=== PATIENT | female | born 1995 | race Caucasian/White ===

== ENCOUNTER 2022-10-12 07:47 | Inpatient (IN) ==
[2022-10-12] MEDS ORDERED: OXYTOCIN 30 UNITS/500 ML BAG IV PRN (09:00)
[2022-10-12] MEDS ORDERED: DINOPROSTONE 10 MG INSERT PV ONE (09:00)
[2022-10-12] MEDS ORDERED: LIDOCAINE 1% LOCAL 20 ML VIAL INFIL PRN (09:00)
[2022-10-12 09:42] LABS: Hematocrit (blood only) 37.5 % (37.0-47.0); Hemoglobin 12.9 g/dl (12.0-16.0); Mean Corpuscular Hgb Conc 34.4 g/dL (32.0-36.0); Mean Corpuscular Volume 98.9 fL (80.0-100.0); Mean Platelet Volume 11.3 fL (9.4-12.4); Platelet Count 198 K/uL (130-400); RDW Coefficient of Variation 11.7 % (11.5-14.5); RDW Standard Deviation 42.8 fL (36.4-46.3); Red Blood Count 3.79 M/uL (4.20-5.40); White Blood Count 8.39 K/ul (4.8-10.8)
[2022-10-12 09:55] LABS: Albumin Globulin Ratio 1.3 (0.9-2); Albumin Level 3.2 gm/dl (3.4-5.0); BUN Creatinine Ratio 17.2 (10-20); Bilirubin,Total 0.4 mg/dl (0.2-1.0); Calcium 8.8 mg/dl (8.6-10.3); Creatinine Clr Calc Pharmacy 141.4 ml/min; Est GFR (African American) 140.7 ml/min; Est GFR (Non-African American) 121.4 ml/min; Globulin 2.5 gm/dl (2.5-4.0); Potassium 3.7 mmol/L (3.5-5.1); Total Protein 5.7 gm/dl (6.0-8.3)
--- NOTE | 2022-10-12 09:58 | History & Physical Report ---
Date of Service October 12, 2022 Assessment & Plan (1) 40 weeks gestation of : Plan: 27-year-old G1, P0 at 40 weeks of gestation scheduled for induction of labor at term, Vital signs stable afebrile, GBS negative, heart rate reassuring, Cervix unfavorable, Plan to admit, monitor, labs, Cervidil for cervical ripening, discussed what to expect during induction of labor, All questions were answered. Admission and Anticipated Discharge Date Admission Date: October 12, 2022 History of Present Illness Primary Care Provider: Ana Moreira MD Patient is a 27-year-old G1, P0 at 40 weeks of gestation who was scheduled for induction of labor at term due to slight elevated blood pressures in the office, 130s to 80s. Patient feels well no complaints. She denies contractions, leakage of fluid, vaginal bleeding, headaches, change in her vision, nausea vomiting, right upper quadrant or epigastric pain. She reports good movements. Her has been uncomplicated. GBS negative. Allergies Allergy/AdvReac Type Severity Reaction Status Date / Time codeine Allergy Nausea Verified 07/06/22 16:13 hydrocodone Allergy Nausea Verified 07/06/22 16:13 oxycodone Allergy Nausea Verified 07/06/22 16:13 Patient History Medical History (Updated 10/12/22 @ 09:57 by Alayna Oliveros MD) Chicken pox Instability of ankle Migraine Peroneal tendonitis of right lower extremity Tendonitis of ankle Surgical History Status post wisdom tooth extraction Family History Grandmother (Maternal) Breast cancer Other Diabetes Hypertension Denies family history of Ovarian cancer Colorectal cancer Social History Smoking Status: Never smoker Hx Alcohol Use: No Hx Substance Use: No Preferred Language: [employer]ian [employer] Required: No Beliefs That Will Affect Care: None marital status: Current Living Situation: Spouse Other Information That Helps Us Care for You: No Feels Safe at Home: No Is there a partner from a previous relationship who is making you feel unsafe now?: No Any Concerns about Your Family Situation: No Wou ld You Like to Speak to Someone About Your Situation: No Safety Concerns: Feels Safe At This Time Assistive Devices: None [employer]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 No history of genital herpes, chlamydia, gonorrhea. Review of Systems as per Subjective / HPI Physical Exam Constitutional: WD/WN, vitals as above well developed, well nourished and comfortable Gastrointestinal (Abdomen): normal bowel sounds, soft, nontender, no hepatosplenomegaly (Gravid, Ervin 7 pounds) Genitourinary: normal external appearance OB Exam Abdomen: + vertex Manual OB Exam: + cervical dilation 1 cm, + cervical effacement 20% and + station high OB Exam Monitor Tracing: + external uterine monitor used and + category I Results & Data Vital Signs (Past 12 Hours) Vital Signs Temp Pulse Resp BP 10/12/22 08:36 19 10/12/22 08:36 37.0 C 10/12/22 08:23 85 139/88
[2022-10-12] MEDS ORDERED: BUTORPHANOL TARTRATE 1 MG/ML VIAL IV PRN (14:30)
[2022-10-12] MEDS ORDERED: ONDANSETRON INJ 2 MG/ML 2 ML VIAL IV PRN (14:31)
[2022-10-12] MEDS: diphenhydrAMINE Capsule 25 MG CAP PO PRN (14:50)
--- NOTE | 2022-10-12 18:51 | Obstetrical Progress Note ---
Date of Service October 12, 2022 Assessment & Plan Admission and Anticipated Discharge Date Admission Date: October 12, 2022 Subjective Patient is reevaluated She feels irregular contractions, pain is 3/ 10, does not need pain meds No LOF/VB +FM She is hungry and likes to eat FHR categ I Continue to monitor Dinner, remove cervidil at 10 tonight Results & Data Vital Signs (Past 12 Hours) Vital Signs Temp Pulse Resp BP 10/12/22 17:45 72 128/86 10/12/22 17:15 70 134/88 10/12/22 16:45 61 125/75 10/12/22 16:15 61 128/75 10/12/22 15:36 78 144/90 H 10/12/22 15:25 76 141/92 H 10/12/22 15:15 65 135/93 10/12/22 15:05 69 145/98 H 10/12/22 14:53 75 154/95 H 10/12/22 14:54 36.7 C 76 149/97 H 10/12/22 12:48 37.0 C 69 18 127/75 10/12/22 08:36 19 10/12/22 08:36 37.0 C 19 10/12/22 08:23 85 139/88
[2022-10-12] MEDS: HYDROCORTISONE 2.5% CR 30 GM TUBE EXT PRN (19:36)
--- NOTE | 2022-10-12 23:19 | Obstetrical Progress Note ---
Date of Service October 12, 2022 Assessment & Plan Admission and Anticipated Discharge Date Admission Date: October 12, 2022 Subjective Patient is getting more painful since Cervidil was removed. Rates the pain 9-10/ 10, desires epidural for pain No LOF/VB +FM VE; 2/ 70%/ -2, tight bulging bag FHR categ I ctxs q 1-3 min Continue to monitor closely Epidural for pain Results & Data Vital Signs (Past 12 Hours) Vital Signs Temp Pulse Resp BP 10/12/22 19:10 36.7 C 18 10/12/22 19:33 69 133/89 10/12/22 17:45 72 128/86 10/12/22 17:15 70 134/88 10/12/22 16:45 61 125/75 10/12/22 16:15 61 128/75 10/12/22 15:36 78 144/90 H 10/12/22 15:25 76 141/92 H 10/12/22 15:15 65 135/93 10/12/22 15:05 69 145/98 H 10/12/22 14:53 75 154/95 H 10/12/22 14:54 36.7 C 76 149/97 H 10/12/22 12:48 37.0 C 69 18 127/75
[2022-10-12] MEDS: LACTATED RINGER'S 1,000 ML IV PRN (23:21)
[2022-10-12] MEDS ORDERED: fentaNYL 2MCG/ML ROPIVACAINE 1.25MG/ML 100 ML BAG EPI ONE (23:27)
[2022-10-12] MEDS ORDERED: fentaNYL citrate PF 100 MCG/2 ML VIAL ONE (23:27)
[2022-10-12] MEDS ORDERED: LIDOCAINE 2%/EPINEPHRINE 1:200,000 20 ML PF ONE (23:27)
[2022-10-12] MEDS ORDERED: SODIUM CHLORIDE 0.9% PF INJ 10 ML VIAL ONE (23:27)
[2022-10-12] MEDS ORDERED: BUPIVACAINE 0.25% PF 30 ML VIAL ONE (23:27)
[2022-10-12] MEDS ORDERED: ePHEDrine sulfate 50 MG/ML AMP ONE (23:27)
--- NOTE | 2022-10-12 23:28 | Anesthesiology Consultation ---
Date of Service October 12, 2022 Assessment & Plan (1) Encounter for pre-operative examination: Chart Review Chart Review: Acceptable Risk for Labor Epidural History Height/Weight Height: 5 ft 6 in Weight: 82.1 kg Allergies Allergy/AdvReac Type Severity Reaction Status Date / Time codeine Allergy Nausea Verified 07/06/22 16:13 hydrocodone Allergy Nausea Verified 07/06/22 16:13 oxycodone Allergy Nausea Verified 07/06/22 16:13 Medications Active Medications Generic Name Dose Route Start Last Admin Trade Name Freq PRN Reason Stop Dose Admin Diphenhydramine HCl 25 mg 10/12/22 14:33 10/12/22 14:50 Diphenhydramine Capsule 25 Mg Cap PO 11/11/22 14:32 25 mg Q8 PRN Administration Itching Hydrocortisone 1 appln 10/12/22 19:00 10/12/22 19:36 Hydrocortisone 2.5% Cr 30 Gm Tube EXT 11/11/22 18:59 1 appln Q8 PRN Administration Itching Lactated Ringer's 1,000 mls @ 150 mls/hr 10/12/22 09:00 10/12/22 23:21 Lr IV 10/14/22 08:59 999 mls/hr .[id number] PRN Administration L&D Protocol Protocol Past Medical History Medical History (Updated 10/12/22 @ 23:28 by Justyn Doran MD) Chicken pox Instability of ankle Migraine Peroneal tendonitis of right lower extremity Tendonitis of ankle Past Family History Family History Grandmother (Maternal) Breast cancer Other Diabetes Hypertension Denies family history of Ovarian cancer Colorectal cancer Past Surgical History Surgical History Status post wisdom tooth extraction Social History Smoking Status: Never smoker Do You Dip or Chew Tobacco: No Hx Alcohol Use: No Hx Substance Use: No Physical Exam Vital Signs Last Vital Signs Temp 36.7 C 10/12/22 19:10 Pulse 75 10/12/22 23:19 Resp 18 10/12/22 19:10 BP 141/82 H 10/12/22 23:19 Testing Laboratory Results 10/12/22 09:11 10/12/22 09:11
[2022-10-13] MEDS ORDERED: ONDANSETRON INJ 2 MG/ML 2 ML VIAL IV PRN (00:07)
[2022-10-13] MEDS ORDERED: NALOXONE HCL 1 MG in SODIUM CHLORIDE 0.9% 1000ML 1,000 ML IV PRN (00:07)
[2022-10-13] MEDS ORDERED: fentaNYL 2MCG/ML ROPIVACAINE 1.25MG/ML 100 ML BAG EPI PRN (00:07)
[2022-10-13] MEDS ORDERED: ePHEDrine sulfate 50 MG/ML AMP IV PRN (00:07)
[2022-10-13] MEDS ORDERED: NALOXONE HCL 0.4 MG/1 ML VIAL/CARP IV PRN (00:07)
[2022-10-13] MEDS ORDERED: OXYTOCIN 30 UNITS/500 ML BAG IV PRN ×2 (01:08→10:54)
[2022-10-13] MEDS: LACTATED RINGER'S 1,000 ML IV PRN ×2 (03:16→07:04)
--- NOTE | 2022-10-13 03:50 | Obstetrical Progress Note ---
Date of Service October 13, 2022 Assessment & Plan Admission and Anticipated Discharge Date Admission Date: October 12, 2022 Subjective Patient was sleeping and got up with gush of fluid leaking. SROM'ed at 03:11 FHR had been categ I, started to have early and variable decels to 80-90-100's with some contractions. Pitocin is stopped, IVF started VE; 3/ 70%/-2, engaged FHR now 120-130's with accels Continue to monitor closely. Results & Data Vital Signs (Past 12 Hours) Vital Signs Temp Pulse Resp BP Pulse Ox 10/12/22 19:10 36.7 C 18 10/13/22 03:41 69 98 10/13/22 03:36 80 96 10/13/22 03:33 71 94 10/13/22 03:31 69 95 10/13/22 03:32 68 108/55 L 10/13/22 03:26 77 95 10/13/22 03:21 76 97 10/13/22 03:16 77 149/90 H 96 10/13/22 03:11 74 96 10/13/22 03:06 74 95 10/13/22 03:07 81 94 10/13/22 03:01 94 10/13/22 03:01 69 10/13/22 03:01 70 94 10/13/22 03:00 68 129/67 10/13/22 02:56 76 96 10/13/22 02:55 72 94 10/13/22 02:51 80 94 10/13/22 02:49 74 94 10/13/22 02:46 71 92 10/13/22 02:45 69 132/66 10/13/22 02:44 74 94 10/13/22 02:41 79 95 10/13/22 02:38 74 94 10/13/22 02:36 77 96 10/13/22 02:31 70 96 10/13/22 02:32 71 94 10/13/22 02:30 71 136/72 10/13/22 02:26 96 10/13/22 02:26 72 10/13/22 02:26 68 94 10/13/22 02:21 71 96 10/13/22 02:18 72 94 10/13/22 02:16 70 94 10/13/22 02:15 70 137/75 10/13/22 02:12 71 94 10/13/22 02:11 74 94 10/13/22 02:06 69 93 10/13/22 02:02 16 10/13/22 02:02 16 10/13/22 02:01 95 10/13/22 02:01 77 10/13/22 02:01 68 126/70 10/13/22 02:00 68 94 10/13/22 01:56 76 96 10/13/22 01:55 72 94 10/13/22 01:51 71 94 10/13/22 01:49 70 94 10/13/22 01:46 71 130/69 94 10/13/22 01:41 71 95 10/13/22 01:42 69 94 10/13/22 01:36 72 95 10/13/22 01:31 71 95 10/13/22 01:30 70 133/73 94 10/13/22 01:25 71 95 10/13/22 01:23 84 16 93 10/13/22 01:20 78 96 10/13/22 01:15 74 128/63 97 10/13/22 01:10 73 95 10/13/22 01:05 74 96 10/13/22 01:00 69 120/57 L 96 10/13/22 00:55 69 95 10/13/22 00:50 68 95 10/13/22 00:49 69 94 10/13/22 00:45 95 10/13/22 00:45 69 10/13/22 00:45 67 120/59 L 10/13/22 00:40 69 96 10/13/22 00:35 71 98 10/13/22 00:30 78 120/61 96 10/13/22 00:25 78 96 10/13/22 00:20 76 97 10/13/22 00:15 75 97 10/13/22 00:14 73 122/59 L 10/13/22 00:10 76 16 96 10/13/22 00:08 68 110/56 L 10/13/22 00:05 70 18 96 10/13/22 00:06 68 111/57 L 10/13/22 00:04 71 113/58 L 10/13/22 00:02 64 112/55 L 10/13/22 00:00 65 18 110/55 L 96 10/12/22 23:58 67 119/60 10/12/22 23:55 66 94 10/12/22 23:53 64 106/51 L 10/12/22 23:50 89 97 10/12/22 23:45 79 97 10/12/22 23:40 94 10/12/22 23:40 79 10/12/22 23:40 75 93 10/12/22 23:35 80 98 10/12/22 23:30 77 97 10/12/22 23:19 36.7 C 75 20 141/82 H 10/12/22 19:33 69 133/89 10/12/22 17:45 72 128/86 10/12/22 17:15 70 134/88 10/12/22 16:45 61 125/75 10/12/22 16:15 61 128/75
--- NOTE | 2022-10-13 04:46 | Obstetrical Progress Note ---
Date of Service October 13, 2022 Assessment & Plan Admission and Anticipated Discharge Date Admission Date: October 12, 2022 Subjective FHR started to have decels again, some early some variables, lately with de creased variability VE; 4-5 cm/ 90%/ -1, IUPC is placed with amnioinfusion, 250 ml is started FHR had increased variability and acceleration after exam Continue to monitor closely Results & Data Vital Signs (Past 12 Hours) Vital Signs Temp Pulse Resp BP Pulse Ox 10/12/22 19:10 36.7 C 18 10/13/22 04:41 71 99 10/13/22 04:36 71 99 10/13/22 04:31 69 100 10/13/22 04:30 73 124/70 10/13/22 04:26 72 99 10/13/22 04:21 70 99 10/13/22 04:16 65 99 10/13/22 04:15 61 127/76 10/13/22 03:50 18 10/13/22 03:50 37.0 C 18 10/13/22 04:11 66 100 10/13/22 04:06 71 99 10/13/22 04:01 74 99 10/13/22 04:00 68 127/72 10/13/22 03:56 72 98 10/13/22 03:51 77 99 10/13/22 03:46 73 97 10/13/22 03:41 69 98 10/13/22 03:36 80 96 10/13/22 03:33 71 94 10/13/22 03:31 69 95 10/13/22 03:32 68 108/55 L 10/13/22 03:26 77 95 10/13/22 03:21 76 97 10/13/22 03:16 77 149/90 H 96 10/13/22 03:11 74 96 10/13/22 03:06 74 95 10/13/22 03:07 81 94 10/13/22 03:01 94 10/13/22 03:01 69 10/13/22 03:01 70 94 10/13/22 03:00 68 129/67 10/13/22 02:56 76 96 10/13/22 02:55 72 94 10/13/22 02:51 80 94 10/13/22 02:49 74 94 10/13/22 02:46 71 92 10/13/22 02:45 69 132/66 10/13/22 02:44 74 94 10/13/22 02:41 79 95 10/13/22 02:38 74 94 10/13/22 02:36 77 96 10/13/22 02:31 70 96 10/13/22 02:32 71 94 10/13/22 02:30 71 136/72 10/13/22 02:26 96 10/13/22 02:26 72 10/13/22 02:26 68 94 10/13/22 02:21 71 96 10/13/22 02:18 72 94 10/13/22 02:16 70 94 10/13/22 02:15 70 137/75 10/13/22 02:12 71 94 10/13/22 02:11 74 94 10/13/22 02:06 69 93 10/13/22 02:02 16 10/13/22 02:02 16 10/13/22 02:01 95 10/13/22 02:01 77 10/13/22 02:01 68 126/70 10/13/22 02:00 68 94 10/13/22 01:56 76 96 10/13/22 01:55 72 94 10/13/22 01:51 71 94 10/13/22 01:49 70 94 10/13/22 01:46 71 130/69 94 10/13/22 01:41 71 95 10/13/22 01:42 69 94 10/13/22 01:36 72 95 10/13/22 01:31 71 95 10/13/22 01:30 70 133/73 94 10/13/22 01:25 71 95 10/13/22 01:23 84 16 93 10/13/22 01:20 78 96 10/13/22 01:15 74 128/63 97 10/13/22 01:10 73 95 10/13/22 01:05 74 96 10/13/22 01:00 69 120/57 L 96 10/13/22 00:55 69 95 10/13/22 00:50 68 95 10/13/22 00:49 69 94 10/13/22 00:45 95 10/13/22 00:45 69 10/13/22 00:45 67 120/59 L 10/13/22 00:40 69 96 10/13/22 00:35 71 98 10/13/22 00:30 78 120/61 96 10/13/22 00:25 78 96 10/13/22 00:20 76 97 10/13/22 00:15 75 97 10/13/22 00:14 73 122/59 L 10/13/22 00:10 76 16 96 10/13/22 00:08 68 110/56 L 10/13/22 00:05 70 18 96 10/13/22 00:06 68 111/57 L 10/13/22 00:04 71 113/58 L 10/13/22 00:02 64 112/55 L 10/13/22 00:00 65 18 110/55 L 96 10/12/22 23:58 67 119/60 10/12/22 23:55 66 94 10/12/22 23:53 64 106/51 L 10/12/22 23:50 89 97 10/12/22 23:45 79 97 10/12/22 23:40 94 10/12/22 23:40 79 10/12/22 23:40 75 93 10/12/22 23:35 80 98 10/12/22 23:30 77 97 10/12/22 23:19 36.7 C 75 20 141/82 H 10/12/22 19:33 69 133/89 10/12/22 17:45 72 128/86 10/12/22 17:15 70 134/88 10/12/22 16:45 61 125/75
[2022-10-13] MEDS ORDERED: LIDOCAINE 2%/EPINEPHRINE 1:200,000 20 ML PF ONE (06:00)
[2022-10-13] MEDS ORDERED: ROPIVACAINE 0.5% 5 MG/ML 30 ML VIAL ONE (06:00)
--- NOTE | 2022-10-13 06:11 | Anesthesia Procedure Note ---
Date of Service October 13, 2022 Anesthesia Epidural Re-Dose Vital Signs Temp Pulse Resp BP Pulse Ox 36.7 C 70 18 136/71 97 10/13/22 04:55 10/13/22 06:01 10/13/22 04:55 10/13/22 06:01 10/13/22 06:01 Notes Pain Intensity: 6 Dilatation (cm): 7.0 Effacement (%): 100 Called by nursing to evaluate epidural as the patient is having increased pain though really doesn't even breathe differently during the peak of contractions. The epidural was re-dosed with the following medications (all medications via epidural route) after negative aspiration of the epidural catheter for CSF/HEME 1.2% lidocaine and 0.2% ropivacaine 7ml. After Epidural Re-Dose Mental Status: alert / awake / arousable Pain: improving with treatment Airway Patency, RR, SpO2: stable & adequate BP & HR: stable & adequate
--- NOTE | 2022-10-13 08:43 | Labor Progress Brief Note ---
Date of Service October 13, 2022 Assessment & Plan Admission and Anticipated Discharge Date Admission Date: October 12, 2022 Physical Exam Genitourinary: Manual OB Exam: + cervical dilation 10 cm, + cervical effacement 100%, + station 0 and + 1 and + amniotic fluid clear OB Exam Monitor Tracing: + external FHT monitor used, + intra-uterine pressure catheter used, + category I and + normal FHT variability Results & Data Vital Signs (Past 12 Hours) Vital Signs Temp Pulse Resp BP Pulse Ox 10/13/22 08:08 20 10/13/22 07:00 37.2 C 18 10/13/22 08:41 82 99 10/13/22 08:36 79 98 10/13/22 08:31 74 157/93 H 98 10/13/22 08:26 71 98 10/13/22 08:21 76 99 10/13/22 08:16 70 98 10/13/22 08:17 69 142/85 H 10/13/22 08:11 77 99 10/13/22 08:00 20 10/13/22 08:00 20 10/13/22 08:06 73 98 10/13/22 08:01 74 136/70 100 10/13/22 07:56 78 99 10/13/22 07:51 83 99 10/13/22 07:46 82 100 10/13/22 07:47 82 149/76 H 10/13/22 07:41 79 100 10/13/22 07:36 75 99 10/13/22 07:31 79 139/65 100 10/13/22 07:26 73 98 10/13/22 07:21 75 98 10/13/22 07:16 98 10/13/22 07:16 74 10/13/22 07:16 73 129/62 10/13/22 07:11 76 97 10/13/22 07:06 91 H 99 10/13/22 07:01 99 10/13/22 07:01 81 10/13/22 07:01 80 126/62 10/13/22 06:56 80 99 10/13/22 06:51 80 99 10/13/22 06:46 80 100 10/13/22 06:47 79 133/68 10/13/22 06:41 76 100 10/13/22 06:36 78 100 10/13/22 06:31 99 10/13/22 06:31 78 10/13/22 06:31 78 122/63 10/13/22 06:26 79 99 10/13/22 06:21 83 99 10/13/22 06:16 74 98 10/13/22 06:15 75 117/63 10/13/22 06:11 97 10/13/22 06:11 79 10/13/22 06:11 80 120/60 10/13/22 06:09 78 127/64 10/13/22 06:08 115 H 18 90 10/13/22 06:07 72 129/68 10/13/22 06:06 72 97 10/13/22 06:05 71 18 128/65 10/13/22 06:01 70 136/71 97 10/13/22 05:56 69 98 10/13/22 05:51 71 98 10/13/22 05:46 67 98 10/13/22 05:45 68 127/64 10/13/22 05:41 70 99 10/13/22 05:36 70 98 10/13/22 05:31 99 10/13/22 05:31 81 10/13/22 05:31 68 158/75 H 10/13/22 05:26 71 97 10/13/22 05:21 80 99 10/13/22 05:16 68 99 10/13/22 05:15 68 136/77 10/13/22 05:11 77 99 10/13/22 05:06 77 99 10/13/22 05:01 67 100 10/13/22 05:00 64 133/75 10/13/22 04:55 18 10/13/22 04:55 36.7 C 18 10/13/22 04:56 84 100 10/13/22 04:51 71 99 10/13/22 04:46 63 99 10/13/22 04:45 66 140/75 10/13/22 04:41 71 99 10/13/22 04:36 71 99 10/13/22 04:31 69 100 10/13/22 04:30 73 124/70 10/13/22 04:26 72 99 10/13/22 04:21 70 99 10/13/22 04:16 65 99 10/13/22 04:15 61 127/76 10/13/22 03:50 18 10/13/22 03:50 37.0 C 18 10/13/22 04:11 66 100 10/13/22 04:06 71 99 10/13/22 04:01 74 99 10/13/22 04:00 68 127/72 10/13/22 03:56 72 98 10/13/22 03:51 77 99 10/13/22 03:46 73 97 10/13/22 03:41 69 98 10/13/22 03:36 80 96 10/13/22 03:33 71 94 10/13/22 03:31 69 95 10/13/22 03:32 68 108/55 L 10/13/22 03:26 77 95 10/13/22 03:21 76 97 10/13/22 03:16 77 149/90 H 96 10/13/22 03:11 74 96 10/13/22 03:06 74 95 10/13/22 03:07 81 94 10/13/22 03:01 94 10/13/22 03:01 69 10/13/22 03:01 70 94 10/13/22 03:00 68 129/67 10/13/22 02:56 76 96 10/13/22 02:55 72 94 10/13/22 02:51 80 94 10/13/22 02:49 74 94 10/13/22 02:46 71 92 10/13/22 02:45 69 132/66 10/13/22 02:44 74 94 10/13/22 02:41 79 95 10/13/22 02:38 74 94 10/13/22 02:36 77 96 10/13/22 02:31 70 96 10/13/22 02:32 71 94 10/13/22 02:30 71 136/72 10/13/22 02:26 96 10/13/22 02:26 72 10/13/22 02:26 68 94 10/13/22 02:21 71 96 10/13/22 02:18 72 94 10/13/22 02:16 70 94 10/13/22 02:15 70 137/75 10/13/22 02:12 71 94 10/13/22 02:11 74 94 10/13/22 02:06 69 93 10/13/22 02:02 16 10/13/22 02:02 16 10/13/22 02:01 95 0428/23 02:01 77 10/13/22 02:01 68 126/70 10/13/22 02:00 68 94 10/13/22 01:56 76 96 10/13/22 01:55 72 94 10/13/22 01:51 71 94 10/13/22 01:49 70 94 10/13/22 01:46 71 130/69 94 10/13/22 01:41 71 95 10/13/22 01:42 69 94 10/13/22 01:36 72 95 10/13/22 01:31 71 95 10/13/22 01:30 70 133/73 94 10/13/22 01:25 71 95 10/13/22 01:23 84 16 93 10/13/22 01:20 78 96 10/13/22 01:15 74 128/63 97 10/13/22 01:10 73 95 10/13/22 01:05 74 96 10/13/22 01:00 69 120/57 L 96 10/13/22 00:55 69 95 10/13/22 00:50 68 95 10/13/22 00:49 69 94 10/13/22 00:45 95 10/13/22 00:45 69 10/13/22 00:45 67 120/59 L 10/13/22 00:40 69 96 10/13/22 00:35 71 98 10/13/22 00:30 78 120/61 96 10/13/22 00:25 78 96 10/13/22 00:20 76 97 10/13/22 00:15 75 97 10/13/22 00:14 73 122/59 L 10/13/22 00:10 76 16 96 10/13/22 00:08 68 110/56 L 10/13/22 00:05 70 18 96 10/13/22 00:06 68 111/57 L 10/13/22 00:04 71 113/58 L 10/13/22 00:02 64 112/55 L 10/13/22 00:00 65 18 110/55 L 96 10/12/22 23:58 67 119/60 10/12/22 23:55 66 94 10/12/22 23:53 64 106/51 L 10/12/22 23:50 89 97 10/12/22 23:45 79 97 10/12/22 23:40 94 10/12/22 23:40 79 10/12/22 23:40 75 93 10/12/22 23:35 80 98 10/12/22 23:30 77 97 10/12/22 23:19 36.7 C 75 20 141/82 H
--- NOTE | 2022-10-13 10:01 | Delivery Summary ---
Vaginal Delivery Summary Date of Service October 13, 2022 Vaginal Delivery Summary Delivery Note live male BRYSON over intact perineum with delayed cord clamping and Apgars 7/9 with short cord noted. Placenta delivered spontaneously and intact with accessory lobe of placenta noted with 3VC. Small 1st degree vaginal tear not repaired with no bleeding noted. EBL 100 ml. Final sponge and instrument count are correct. Mom and baby stable.
[2022-10-13] MEDS ORDERED: ACETAMINOPHEN 325 MG TAB PO PRN (10:54)
[2022-10-13] MEDS ORDERED: bisacodyL 10 MG SUPP PR PRN (10:54)
[2022-10-13] MEDS ORDERED: HYDROCORTISONE ACETATE 25 MG SUPP PR PRN (10:54)
[2022-10-13] MEDS ORDERED: DIPHTHERIA/TETANUS/PERTUSSIS 0.5mL SYR/VIAL (Age 7+yrs) IM ONE (10:54)
--- NOTE | 2022-10-13 12:14 | Anesthesia Procedure Note ---
Date of Service October 13, 2022 Anesthesia Post Epidural Note Vital Signs Vital Signs: Temp Pulse Resp BP Pulse Ox 37.1 C 88 20 137/76 97 10/13/22 09:01 10/13/22 12:10 10/13/22 09:30 10/13/22 12:10 10/13/22 09:51 Pain Intensity Abdomen: Pain Intensity: 0 Notes Mental Status: alert / awake / arousable and participated in evaluation Nausea / Vomiting: adequately controlled Pain: adequately controlled Airway Patency, RR, SpO2: stable & adequate BP & HR: stable & adequate Hydration State: stable & adequate Neuraxial Anesthesia: was administered and sensory block is resolving Anesthetic Complications: no major complications apparent and Pt Satisfied with anesthetic care Epidural: Removed without complications and With tip intact
[2022-10-13] MEDS: HYDROCORTISONE 2.5% CR 30 GM TUBE EXT PRN (12:41)
[2022-10-13] MEDS: IBUPROFEN 600 MG TAB PO PRN (14:10)
[2022-10-13] MEDS: BENZOCAINE 20% AER SPR 82.5 GM CAN EXT PRN (14:10)
[2022-10-13] MEDS: DOCUSATE SODIUM 100 MG CAP PO SCH (20:48)
[2022-10-14] MEDS: DOCUSATE SODIUM 100 MG CAP PO SCH ×2 (07:23→21:01)
[2022-10-14] MEDS: PRENATAL VITAMIN 1 TAB PO SCH (07:23)
[2022-10-14 07:56] LABS: Hematocrit (blood only) 35.2 % (37.0-47.0); Hemoglobin 12.3 g/dl (12.0-16.0); Mean Corpuscular Hemoglobin 34.3 pg (25.0-34.0); Mean Corpuscular Hgb Conc 34.9 g/dL (32.0-36.0); Mean Corpuscular Volume 98.1 fL (80.0-100.0); Mean Platelet Volume 11.4 fL (9.4-12.4); Platelet Count 175 K/uL (130-400); RDW Coefficient of Variation 11.9 % (11.5-14.5); RDW Standard Deviation 43.5 fL (36.4-46.3); Red Blood Count 3.59 M/uL (4.20-5.40); White Blood Count 13.37 K/ul (4.8-10.8)
--- NOTE | 2022-10-14 09:31 | Obstetrical Progress Note ---
Date of Service October 14, 2022 Assessment & Plan (1) Normal course: PPD #1 Pt doing well anticipate disch tomorrow Subjective Ambulation: ambulating normally Voiding: no voiding problems Passing Gas:: Yes Diet Tolerance:: regular diet Lochia:: Small Feeding Type:: breast feeding Review of Systems All systems reviewed & are unremarkable except as noted in HPI & below Physical Exam Constitutional WD/WN, vitals as above well developed and well nourished Eyes PERRL, conjunctivae normal, anicteric sclerae Neck trachea midline, no thyromegaly Respiratory normal respiratory effort, lungs clear to auscultation Auscultation: no crackles, no rales and no wheezes Cardiovascular RRR, no murmur, no edema Gastrointestinal (Abdomen) normal bowel sounds, soft, nontender, no hepatosplenomegaly Uterus is below umbilicus Musculoskeletal no cyanosis or clubbing, extremities motor strength 5/5 Skin no rashes, warm and dry Neurologic patellar DTR's 2+ bilat, sensation intact Psychiatric A+Ox3, euthymic affect Genitourinary normal external appearance Results & Data Vital Signs (Past 12 Hours) Vital Signs Temp Pulse Resp BP Pulse Ox O2 Del Method 10/14/22 07:40 36.7 C 76 16 127/83 96 Room Air 10/14/22 02:40 36.6 C 69 16 143/86 H Room Air 10/13/22 23:40 36.6 C 66 18 143/90 H 10/13/22 21:35 130/81 10/13/22 21:30 149/92 H
[2022-10-14] MEDS: IBUPROFEN 600 MG TAB PO PRN ×2 (10:43→18:14)
[2022-10-14] MEDS ORDERED: bisacodyL 5 MG TABEC PO SCH (20:00)
[2022-10-14] MEDS: BENZOCAINE 20% AER SPR 82.5 GM CAN EXT PRN (21:01)
[2022-10-15] MEDS: diphenhydrAMINE Capsule 25 MG CAP PO PRN (00:52)
[2022-10-15 06:47] LABS: Hematocrit (blood only) 36.3 % (37.0-47.0); Hemoglobin 12.7 g/dl (12.0-16.0)
[2022-10-15] MEDS: PRENATAL VITAMIN 1 TAB PO SCH (08:54)
[2022-10-15] MEDS: DOCUSATE SODIUM 100 MG CAP PO SCH (08:54)
--- NOTE | 2022-10-15 09:55 | Obstetrical Progress Note ---
Date of Service October 15, 2022 Assessment & Plan (1) Normal course: PPD #2 pt doing well Mildly elevated BP. No PIH symptoms Rash on entire body, sparing the umbilicus. this started before delivery and is improving- suspect PUPPS Plan CBC/ CMP Results & Data Vital Signs (Past 12 Hours) Vital Signs Temp Pulse Resp BP Pulse Ox O2 Del Method 10/15/22 09:34 36.8 C 78 17 149/94 H 99 10/15/22 08:10 36.8 C 78 17 149/94 H 99 Room Air 10/15/22 00:55 36.7 C 75 18 132/81
[2022-10-15 10:33] LABS: Basophils # (auto) 0.03 K/uL (0-0.2); Basophils % (auto) 0.3 %; Eosinophils % (auto) 1.7 %; Hematocrit (blood only) 41.1 % (37.0-47.0); Immature Granulocytes # (auto) 0.05 K/uL (0.01-0.20); Immature Granulocytes % (auto) 0.4 %; Lymphocytes # (auto) 1.44 K/uL (1.2-3.4); Lymphocytes % (auto) 12.1 %; Mean Corpuscular Hemoglobin 34.1 pg (25.0-34.0); Mean Corpuscular Hgb Conc 34.1 g/dL (32.0-36.0); Mean Corpuscular Volume 100.2 fL (80.0-100.0); Mean Platelet Volume 10.5 fL (9.4-12.4); Monocytes % (auto) 3.4 %; Neutrophils # (auto) 9.78 K/uL (1.40-6.50); Neutrophils % (auto) 82.1 %; Platelet Count 254 K/uL (130-400); RDW Coefficient of Variation 11.9 % (11.5-14.5); RDW Standard Deviation 43.8 fL (36.4-46.3)
[2022-10-15 10:53] LABS: Albumin Globulin Ratio 1.2 (0.9-2); Albumin Level 3.5 gm/dl (3.4-5.0); BUN Creatinine Ratio 16.2 (10-20); Bilirubin,Total 0.5 mg/dl (0.2-1.0); Calcium 9.1 mg/dl (8.6-10.3); Creatinine Clr Calc Pharmacy 122.3 ml/min; Est GFR (African American) 127.8 ml/min; Est GFR (Non-African American) 110.3 ml/min; Globulin 2.9 gm/dl (2.5-4.0); Potassium 3.8 mmol/L (3.5-5.1); Total Protein 6.4 gm/dl (6.0-8.3)
== END 2022-10-15 11:55 | disposition home or self-care (01) | DRG 807 ==
LOC: 4S1 07:47 → 4E2 10-13 13:05

== ENCOUNTER 2024-08-03 23:40 | Inpatient (IN) ==
--- OUTSIDE RECORDS SUMMARY | 2024-08-03 23:47 | External Medical Summary | Summary of Care ---
Author Name Unknown Organization [facility] Address [address] [place] [address] Phone [phone] Care Team Providers Care Environment Friendly Landscape Designer Name Role Phone Ana Moreira MD Primary Care Provider [phone] Reason for Visit * Reason Comments Return Visit Encounter Details Date Type Department Care Team (Late st Contact Info) Description 07/25/2024 1:30 PM EST Office Visit Gynecology/Obstetric s [facility] [address] [facility] [place] [address] Toya Starr CRNP [address] [facility] [place] [place] [address] Encounter for supervision of other normal , unspecified trimester*; Uterine size date discrepancy Allergies Active Allergy Reactions Criticality Noted Date Comments Oxycodone 04/27/2020 Other reaction(s): fainting, sweating, dizziness. Also occurred with Percocet documented as of this encounter (statuses as of 07/25/2024) Medications SUMAtriptan Succinate 25 MG Oral Tablet (Imitrex)Indicat ions:Menstrual migraine without status migrainosus, not intractable Take 1 Tablet (25 mg) every 2 hours as needed by mouth for Migraine. 20 Tablet 2 2 Active Additional Information Patient not taking.Reported on 07/25/2024 19 29-1 MG Oral Tablet Chewable Take by mouth . Acti ve Erythromycin 5 MG/GM Ophthalmic Ointment Instill into both eyes 2 times a day. 4 Active Cetirizine HCl 10 MG Oral Tablet (ZyrTEC Allergy)Indicati ons:Periorbital dermatitis,Itchi ng Take 1 Tablet by mouth daily as needed for Other (itchy eyelids). Till better 4 Active predniSONE 5 MG Oral Tablet (Deltasone)Indic ations:Dermatiti s One tablet daily 5 Tablet 4 Active Additional Information Patient not taking.Reported on 07/25/2024 documented as of this encounter (statuses as of 07/25/2024) Active Problems Problem Noted Date Diagnosed Date Encounter for supervision of other normal , unspecified trimester 01/09/2024 History of abnormal cervical Pap smear 3 Overview (12/05/2022): ASCUS +HPV 2021, negative colposcopy. Pap 2022 NILM/neg HPV, recommend repeat in 2023. Lactose intolerance Estimated Date of Delivery Comme nts Yes 08/05/2024 Based on last me nstrual period of 10/30/2023 (Approximate) documented as of this encounter (statuses as of 07/25/2024) Resolved Problems Problem Noted Date Diagnosed Date Resolved Date Marginal insertion of umbili keith cord affecting management of mother in third trimester 05/29/2022 11/22/2022 Overview (08/18/2022): Growth at 36 wks Placenta succenturiata in third trimester 05/29/2022 11/22/2022 Pyelectasis of fetus on ultrasound 05/29/2022 11/22/2022 , normal first 03/03/202212/2022 Menstrual migraine without s tatus migrainosus, not intractable 07/12/2021 11/22/2022 documented as of this encounter (statuses as of 07/25/2024) Immunizations Name Administration Dates Next Due COVID-19 mRNA, LNP-s, No Pre serve, 2-Dose Series (ID AMERICA) 05/05/2021,07/28/2020,07/07/2020 DTaP Dipth/Tet/Acell Pertussis (Infanrix), Peds 09/08/1998,05/13/1996,1994,10/16,1994 HEP A - Hepatitis A (Adult > 18 yrs) 09/02/2012 HIB PRP-T, 4 Dose, PF, IM (H iberix, ActHib) 02/19/1996,1994,1994,08/11 HPV Vaccine, 4-Valent 02/16/2011,10/13/2010,07/19 Hepatitis B, 0-19 yrs 07/23/1995,1994,05/20 IPV - Polio Virus Vaccine (Inact) 1998,05/13/1996,1994,08/11 MMR - Measles/Mumps/Rubella Vaccine 05/22/2017,0 09/21/1999,12/19/1995 Meningococcal Conjugate Vacc ine (Menactra/Menveo) 09/02/2012 PPD 10/04/2020,03/04/2019 Rubella Vaccine 10/01/2014 Seasonal Influenza, PF, 6 M & above, IM , (FluLaval or Fluzone) 04/24/2023,03/29/2022 Seasonal Influenza, Quadriva lent, No Preserve, Mdck 03/23/2020 Seasonal Influenza, Trivalen t, (IIV3), PF, (Fluzone) 04/03/2024 TDAP (age 10 and older)(Boostrix) 07/21/2022,,11/06/2006 TDAP, Age 7 and older, IM (Adacel) 05/20/2024 Varicella Vaccine (Chicken Pox) 05/22/2017,10/01 documented as of this encounter Social History Tobacco Use Types Packs/Day Years Used Date Smoking Tobacco: Never Smokeless Tobacco: Never Comments:No passive smoke ex posures Alcohol Use Standard Drinks/Week Comments Not Currently 0 (1 standard drink = 0.6 oz pur e alcohol) AUDIT-C Answer Date Recorded Frequency of Alcohol Consumption Not on file 09/30/2020 Q2: How many drinks containi ng alcohol do you have on a typical day when you are drinking? 1 or 2 09/30/2020 Q3: How often do you have si x or more drinks on one occasion? Never 09/30/2020 PHQ-2 Answer Date Recorded PHQ Adult Total Score 0 09/30/2020 Hunger Vital Sign Answer Date Recorded Within the past 12 months, y ou worried that your food would run out before you got the money to buy more. Never true 01/09/20 Within the past 12 months, t he food you bought just didn't last and you didn't have money to get more. Never true 01/09/2024 [place] Depression Scale Answer Date Recorded [place] Depression Scale Total 3 07/18/2024 The thought of harming myself has occurred to me . Never 07/18/2024 Childcare Answer Date Recorded Do you feel overwhelmed with taking care of a child, family member or friend? No 01/09/2024 Does your family need help f inding childcare? (Household - for ages 0-17 years) Not on file 01/09/2024 Clothing Answer Date Recorded Have you been unable to get clothing when it was really needed? No 01/09/2024 Is your family able to get c lothes or diapers when needed? (Household - for ages 0-17 years) Not on file 01/09/2024 Personal Safety Answer Date Recorded Do you feel unsafe or have concerns for your saf ety? No 01/09/2024 Do you have concerns for you r family's safety? (Household - for ages 0-17 years) Not on file 01/09/2024 Utilities Answer Date Recorded Do you have trouble paying y our heating, water, or electric bill? No 01/09/2024 Is your family able to pay t he heat, water, or electric bill? (Household - for ages 0-17 years) Not on file 01/09/2024 Does your family have access to good internet? (Household - for ages 0-17 years) Not on file 01/09/2024 Employment Status Answer Date Recorded Are you unemployed or without regular income? No 01/09/2024 Does the household have a re gular source of income? (Household - for ages 0-17 years) Not on file 01/09/2024 Social Connections Answer Date Recorded How often do you feel lonely or isolated from th ose around you? Never 01/09/2024 Financial Resource Strain Answer Date R ecorded Do you have any trouble payi ng for your medications, or do you think you might in the future? No 01/09/2024 Does your family have troubl e paying for medicine? (Household - for ages 0-17 years) Not on file 01/09/2024 Transportation Needs Answer Date Record ed Do you have trouble getting a ride to medical visits or work? (Adult - for ages 18 years and over) Not on file 01/09/2024 Does your family have a hard time getting a ride to doctors visits? (Household - for ages 0-17 years) Not on file 01/09/2024 Has lack of transportation k ept you from medical appointments, meetings, work, or from getting things needed for daily living? Check all that apply. No 01/09/2024 Do you (or your family) have trouble finding or paying for a ride (transportation)? (Household - for ages 0-17 years) Not on file 01/09/2024 Housing Stability Answer Date Recorded Do you currently live in a s helter or have no steady place to sleep at night? No 01/09/2024 Do you think you are at risk of becoming homeless? (Adult - for ages 18 years and over) Not on file 01/09/2024 Does your family worry about paying for your home or becoming homeless? (Household - for ages 0-17 years) Not on file 0 01/09/2024 Are you homeless or worried that you might be in the future? No 01/09/2024 Are you (or your family) kristin eless or worried that you might be in the future? (Household - for ages 0-17 years) Not on file Food Insecurity Answer Date Recorded Do you need food for this week? No 01/09/2024 Are you able to get enough f ood for your family? (Household - for ages 0-17 years) Not on file 01/09/2024 Does your family need food t his week? (Household - for ages 0-17 years) Not on file 01/09/2024 Do you always have enough fo od for your family? (Household - for ages 0-17 years) Not on file 01/09/2024 Food Insecurity Answer Date Recorded Within the past 12 months, y ou worried that your food would run out before you got the money to buy more. Never true 01/09/20 Within the past 12 months, t he food you bought just didn't last and you didn't have money to get more. Never true 01/09/2024 Do you need food for this week? No 01/09/2024 Estimated Date of Delivery Comme nts Yes 08/05/2024 Based on last me nstrual period of 10/30/2023 (Approximate) Sex and Gender Information Value Date Recorded Sex Assigned at Female 03/03/2022 1:56 PM EDT Legal Sex Female 10:05 AM EDT Gender Identity Female 03/03/2022 1:56 PM EDT Sexual Orientation Straight 03/03/2022 1: 56 PM EDT documented as of this encounter Last Filed Vital Signs Vital Sign Reading Time Taken Comments Blood Pressure 124/82 07/25/2024 1:37 PM EST Pulse - - Temperature - - Respiratory Rate - - Oxygen Saturation - - Inhaled Oxygen Concentration - - Weight 85.7 kg (189 lb) 07/25/2024 1:37 PM EST Height - - Body Mass Index 31.11 04/24/2024 11:10 AM EST documented in this encounter Progress Notes * Toya Starr CRNP - 07/25/2024 1:53 PM EST 38w3d States "I feel like trash". Having some GI discomfort, back pain, etc. No contractions. Denies bleeding or LOF. Doesn't feel like she is ill, just end of . Would like cervical check. Dress Operator Documentation Provider requested extrusion manager. Name of extrusion manager: Pratima Size<dates, growth u/s ordered. HEATHER Dixon * Pratima Rowe CMA - 07/25/2024 1:37 PM EST 38w3d Possible loss of mucus plug. Possible contractions, maybe just cramping. documented in this encounter Plan of Treatment Upcoming Encounters Date Type Department Care Team (Late st Contact Info) Description 07/29/2024 1:15 PM EST Imaging Radiology [facility] [address] [facility] [place] [address] [place] [address] 08/01/2024 1:30 PM EST Office Visit Gynecology/Obstetrics Rafa Charles [address] [place] [address] Richelle Malone CRNP [address] [place] [address] 09/08/2024 1:00 PM EDT Office Visit Allergy/Immunology [employer] [address] [facility] [place] [address] Elvira Stanford PA-C [address] [facility] [place] [address] Scheduled Orders Name Type Priority Associated Diagnoses Orde r Schedule US PREG FOLLOW-UP EACH FETUS Medical Imaging Routine Uterine size date discrepancy Expected: 07/25/2024 (Approximate), Expires: 08/22/2025 Health Maintenance Due Date Last Done Comments Depression Screening 09/30/2021 09/30/2020 COVID-19 Vaccine ( season) 2024 05/05/2021, 07/28/2020, 07/07/2020 Pap Smear 01/08/2027 01/09/2024, 0601/2023, 07/12/2021, Additional history exists Cervical Cancer Screening 01/08/2029 HPV/Co-Test 01/08/2029 01/09/2024, 11/23/2022 DTap/Tdap Vaccines (10 - Td or Tdap) 05/20/2034 05/20/2024, 07/21/2022, 12/12/2017, Additional history exists Hepatitis B Vaccine Completed 07/23/1995, 1994, 1994 HPV (Gardasil) Vaccine Completed , 10/13/2010, 07/29/2010 MENINGOCOCCAL (MENACTRA/MENVEO) Completed 09/02/2012 Influenza Vaccine (FLU shot) Completed , 04/24/2023, 03/29/2022, Additional history exists Pneumococcal Vaccine: Pediatrics (0 to 5 Years) and At-Risk Patients (6 to 18 Years and 19+ Years) Aged Out No longer eligib le based on patient's age to complete this topic documented as of this encounter Medical Devices Not on filedocumented as of this encounter Visit Diagnoses Diagnosis Encounter for supervision of other normal , unspecified trimester- Primary Uterine size date discrepancy Uterine size date discrepancy, antepartum condition or complication documented in this encounter Care Teams Environment Friendly Landscape Designer Relationship Specialty Start Date End Date Ana Moreira MD [address] [place] [address] PCP - General Internal Medicine 09/30/20 documented as of this encounter
--- OUTSIDE RECORDS SUMMARY | 2024-08-03 23:47 | External Medical Summary | Summary of Care ---
Author Name Unknown Organization [facility] Address [address] [place] [address] Phone [phone] Care Team Providers Care Capacitor Pack Press Operator Name Role Phone Ana Moreira MD Primary Care Provider [phone] Reason for Visit * Reason Comments Allergy New Pt Encounter Details Date Type Department Care Team (Late st Contact Info) Description 07/10/2024 8:00 AM EST Office Visit Allergy/Immunology [facility] Ale[facility] [place] [address] [facility] [place] [address] Andre Limon MD [address] [place] [address] Angioedema, initial encounter*; Recurrent urticaria; Pruritus Allergies Active Allergy Reactions Criticality Noted Date Comments Oxycodone 04/27/2020 Other reaction(s): fainting, sweating, dizziness. Also occurred with Percocet documented as of this encounter (statuses as of 07/10/2024) Medications SUMAtriptan Succinate 25 MG Oral Tablet (Imitrex)Indicat ions:Menstrual migraine without status migrainosus, not intractable Take 1 Tablet (25 mg) every 2 hours as needed by mouth for Migraine. 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 mother in third trimester 05/29/2022 11/22/2022 Overview (08/18/2022): Growth at 36 wks Placenta succenturiata in third trimester 05/29/2022 11/22/2022 Pyelectasis of fetus on ultrasound 05/29/2022 11/22/2022 , normal first 03/03/2022 06/0 12/2022 Menstrual migraine without s tatus migrainosus, not intractable 07/12/2021 11/22/2022 documented as of this encounter (statuses as of 07/10/2024) Immunizations Name Administration Dates Next Due COVID-19 mRNA, LNP-s, No Pre serve, 2-Dose Series (365 docobites) 05/05/2021,07/28/2020,07/07/2020 DTaP Dipth/Tet/Acell Pertussis (Infanrix), Peds 09/08/1998,05/13/1996,1994,10/16,1994 [...] Date Smoking Tobacco: Never Smokeless Tobacco: Never Tobacco Cessation:Counseling Given: Not Answered Comments:No passive smoke exposures Alcohol Use Standard Drinks/Week Comments Not Currently [...] money to buy more. Never true 01/09/20 24 Within the past 12 months, t he food you bought just didn't last and you didn't have money to get more. Never true 01/09/2024 [place] Depression Scale Answer Date Recorded [place] Depression Scale Total 0 01/09/2024 The thought of harming myself has occurred to me . Never 01/09/2024 Childcare Answer Date Recorded Do you feel [...] ages 0-17 years) Not on file 01/09/2024 Estimated Date of Delivery Comme nts [...] Sign Reading Time Taken Comments Blood Pressure 122/78 07/10/2024 8:03 AM EST Pulse 96 07/10/2024 8:03 AM EST Temperature - - Respiratory Rate 16 07/10/2024 8:03 AM EST Oxygen Saturation 98% 07/10/2024 8:03 AM EST Inhaled Oxygen Concentration - - Weight 84.4 kg (186 lb) 07/10/2024 8:03 AM EST Height - - Body Mass Index 30.62 04/24/2024 11:10 AM EST documented in this encounter Progress Notes * Andre Limon MD - 07/10/2024 8:06 AM EST REASON FOR VISIT: Chief Complaint Patient presents with Allergy New Pt HPI: Elizabeth is a pleasant 29-year-old female who presents to our office as a new patient after being referred by Ana Moreira MD for initial consultation of periorbital angioedema and recurrent urticaria with associated pruritus. The patient reports that since April of 2024, she has had 4 episodes of periorbital swelling and itching. She states that each episode would last 24-48 hours. Of note, she is currently 36 weeks . She states that the swelling will come on spontaneously without any trigger and then will resolve on its own without any significant intervention. Initially she was instructed to take warm compresses but this worse in the swelling. She is in stated that cold compresses her helpful. She has also taken Benadryl as needed and this does resolve her symptoms by the next morning. Following multiple episodes, she is instructed to take Zyrtec daily but she still has had episodes but she is unsure if the episodes are less severe in nature. She does have pictures on her smart phone which documents the periorbital swelling. Of note, she reports that last night andthroughout this week she has had swollen fingers which are different from 1 week ago. She can not wear rings on her fingers. With her swollen fingers, she also had associated urticaria on her fingersthis week. She has not taken her Zyrtec in the past 4 days. Upon further questioning, the patient reports that she had generalized diffuse urticaria near the end of her 1st 2 years ago. She states that around 36 weeks of gestation during that , she had generalized urticaria that started and would persist for about 8 weeks . She is also last seen in our office in 1999 and . Prior to that, in February of 2020, she had lip wilman oedema without any significant trigger overall. With her most recent episodes of periorbital angioedema and urticaria, she reports no relation to changes in her environment. She reports no relation to any foods. She reports no relation to any medications. She reports no recent insect stings. She denies any significant stress nor anxiety. She reports no recent illnesses. She reports no use of NSAIDs. She does not have any other history of autoimmune issues. REVIEW OF SYSTEMS Skin: itching, hives, swelling episodes Eyes: negative Ears/Nose/Throat: negative Respiratory: No history of cough, wheezing, chest tightness or shortness of breath and No history of bronchial asthma Cardiovascular: negative Gastrointestinal: No history of heartburn, dyspepsia, or acid reflux disease. Genitourinary: negative Musculoskeletal: pt denies significant joint pain or stiffness Neurologic: negative Psychiatric: negative Hematologic/Lymphatic/Immunologic: negative Endocrine: negative Constitutional: none Past Medical History: Diagnosis Date Biliary dyskinesia History of abnormal cervical Pap smear 12/05/2022 ASCUS +HPV 2021, negative colposcopy. Pap 2022 NILM/neg HPV, recommend repeat in 2023. Lactose intolerance Migraine Past Surgical History: Procedure Laterality Date ARTHROSCOPIC ACL REVISION POST ALREADY PERFORMED RECONSTRUCTION Left 2009 DENTAL SURGERY PROCEDURE NEC Current Outpatient Medications Medication Sig Dispense Refill 19 29-1 MG Oral Tablet Chewable Take by mouth . Cetirizine HCl 10 MG Oral Tablet (ZyrTEC Allergy) Take 1 Tablet by mouth daily as needed for Other (itchy eyelids). Till better SUMAtriptan Succinate 25 MG Oral Tablet (Imitrex) Take 1 Tablet (25 mg) every 2 hours as needed by mouth for Migraine. (Patient not taking: Reported on 06/16/2024) 20 Tablet 2 Erythromycin 5 MG/GM Ophthalmic Ointment Instill into both eyes 2 times a day. (Patient not taking:Reported on 06/16/2024) predniSONE 5 MG Oral Tablet (Deltasone) One tablet daily (Patient not taking: Reported on 06/16/2024) 5 Tablet 0 No current facility-administered medications for this visit. Allergies as of 07/10/2024 - Reviewed 07/10/2024 Allergen Reaction Noted Oxycodone 04/27/2020 Family History Problem Relation Name Age of Onset Endocrine Disorder Father thyroid prob age 40,s Allergies Father Seasonal pollen and dust allergies. Breast Cancer Grandmother (Maternal) Social History Socioeconomic History Marital status: Spouse name: Not on file Number of children: Not on file Years of education: Not on file Highest education level: Not on file Occupational History Not on file Tobacco Use Smoking status: Never Smokeless tobacco: Never Tobacco comments: No passive smoke exposures Vaping Use Vaping status: Never Used Substance and Sexual Activity Alcohol use: Not Currently Drug use: Never Sexual activity: Yes Partners: Male Other Topics Concern Not on file Social History Narrative Not on file Social Needs Financial Resource Strain: Low Risk (01/09/2024) Financial Resource Strain Do you have any trouble paying for your medications, or do you think you might in the future? (Adult - for ages 18 years and over): No Does your family have trouble paying for medicine? (Household - for ages 0-17 years): Not on file Food Insecurity: No Food Insecurity (01/09/2024) Food Insecurity Do you need food for this week? (Adult - for ages 18 years and over): No Are you able to get enough food for your family? (Household - for ages 0-17 years): Not on file Does your family need food this week? (Household - for ages 0-17 years): Not on file Do you always have enough food for your family? (Household - for ages 0-17 years): Not on file Transportation Needs: No Transportation Needs (01/09/2024) Transportation Needs Do you have trouble getting a ride to medical visits or work? (Adult - for ages 18 years and over):Not on file Does your family have a hard time getting a ride to doctors visits? (Household - for ages 0-17 years): Not on file Has lack of transportation kept you from medical appointments, meetings, work, or from getting things needed for daily living? Check all that apply. (Adult - for ages 18 years and over): No Do you (or your family) have trouble finding or paying for a ride (transportation)? (Household - for ages 0-17 years): Not on file Social Connections: Socially Integrated (01/09/2024) Social Connections How often do you feel lonely or isolated from those around you? (Adult - for ages 18 years and over): Never Housing Stability: Low Risk (01/09/2024) Housing Stability Do you currently live in a nursing home or have no steady place to sleep at night? (Adult - for ages 18 years and over): No Do you think you are at risk of becoming homeless? (Adult - for ages 18 years and over): Not on file Does your family worry about paying for your home or becoming homeless? (Household - for ages 0-17 years): Not on file Are you homeless or worried that you might be in the future? (Adult - for ages 18 years and over): No Are you (or your family) homeless or worried that you might be in the future? (Household - for ages0-17 years): Not on file BP 122/78 | Pulse 96 | Resp 16 | Wt 84.4 kg (186 lb) | LMP 10/30/2023 (Approximate) | SpO2 98% | BMI 30.62 kg/m | BSA 1.97 m PHYSICAL EXAM: GENERAL: No acute distress. HEAD AND FACE: No sinus tenderness noted EYES: EOMI, PERRLA; Conjunctiva- normal; Eyelids - normal EARS: TM's - clear NOSE:Pale mucosa; no turbinate edema; no nasal polyps or mucopus; Septum - normal OROPHARYNX: Teeth and gums - normal; Mild erythema, no cobblestoning; No lesions, exudates NECK: Supple; No thyroid enlargment or cervical adenopathy RESPIRATORY: Clear to A and P; No wheezes; Good air movement bilaterally; No intercostal retractions or accessory muscle use CARDIOVASCULAR: RRR; No gallops, rubs, clicks, or murmurs. GASTROINTESTINAL: Abdomen is soft and non-tender; BS - normal; No palpable masses or organomegaly LYMPHATIC: No significant adenopathy noted MUSCULOSKELETAL: No significant joint swelling, tenderness EXTREMITIES: No cyanosis, clubbing or peripheral edema SKIN: No evidence atopic dermatitis; periorbital swelling noted from pictures on smart phone; slight swelling of fingers bilaterally noted today on exam; NEUROLOGIC/PSYCHIATRIC: Mental status - Oriented x's 3; Mood and affect - normal ASSESSMENT AND PLAN: ICD-10-CM 1. Angioedema, initial encounter T78.3XXA 2. Recurrent urticaria L50.8 3. Pruritus L29.9 In summary, Elizabeth carries a diagnosis of chronic spontaneous urticaria with intermittent angioedema based upon her clinical history. We did review that the urticaria and angioedema is typically caused by an autoimmune process that causes the release of histamine by mast cells in the skin. About 10% of patients have angioedema only. She does have a history of lip angioedema from 4 years ago. Inalmost all children and adults, no external allergic cause or contributing disease process can be identified. Therefore allergy testing to the environment and/or foods is typically not recommended and not of much benefit. Autoimmunity is underlying cause for this disease and most patients. We did review that there are certain triggers that can aggravate her underlying urticaria and lead to further histamine release and flare-ups. This includes physical triggers such as scratching, pressure, friction, tight clothing, and heat. Also stress and anxiety in addition to physical stress in the form of surgeries or procedures can also contribute to further urticaria. We also reviewed that hormonal changes, typically progesterone changes, can also aggravate urticaria and that is likely a trigger in this case. Illnesses and infections, NSAID medications, high histamine foods such as strawberries, tomatoes, citrus, aged cheeses, and spicy foods in addition to alcohol can also contributeto her symptoms. Lack of control of other possible autoimmune processes can also worsening symptomsalthough she is fairly healthy otherwise. From a pharmacotherapy standpoint, the goal is control of her urticaria and angioedema to have it not affect her activities of daily living. First-line therapy tends to be antihistamines to target the histamine release process of this autoimmune disorder. Given that her symptoms are fairly sporadic, she will continue with Benadryl but only on a as needed basis. She will also continue with Zyrtec 10 mg daily and this has been shown to be safe in . After she gives , we very well could be more aggressive from an antihistamine standpoint if necessary. Thank you very much for allowing myself to participate in the care of your patient. Please do not hesitate to contact our office should you have any questions or concerns. Andre Limon MD Allergy/Immunology I spent a total of Greater than 55 mins (exact time 67 mins) on the date of service in preparation,delivery, and documentation of the care provided to Elizabeth Barreto excluding any time spent in the performance of separately billed services or time spent by another provider/QHP. (This note was completed using the dictation program Fluency Direct. As such, there may be misspellings, word substitutions, or other variations that should not change the essence of the clinical content of this encounter note.If there is need for further clarification, please direct questions to the provider listed above.) PCP: ANA MOREIR[place] Dr [place], [place] [address] [phone] documented in this encounter Nursing Notes * Valentina Hunter LPN - 07/10/2024 7:59 AM EST The pt has been properly identified by confirmation of name and date of . Pt presents as a new pt for swelling in eyes. Pt last seen in 2020. documented in this encounter Plan of Treatment Upcoming Encounters Date Type Department Care Team (Late st Contact Info) Description 07/10/2024 1:30 PM EST Office Visit Gynecology/Obstetrics [facility] [address] [place] [address] Toya Starr CRNP [address] [place] [address] 07/18/2024 1:30 PM EST Office Visit Gynecology/Obstetrics [facility] [address] [place] [address] Richelle Malone CRNP [address] [place] [address] 07/25/2024 1:30 PM EST Office Visit Gynecology/Obstetrics [facility] [address] [place] [address] Toya Starr CRNP [address] [place] [address] 08/01/2024 1:30 PM EST Office Visit Gynecology/Obstetrics [facility] [address] [place] [address] Richelle Malone CRNP [address] [place] [address] 09/08/2024 1:00 PM EDT Office Visit Allergy/Immunology Milady Alejandro [place] [address] [facility] [place] [address] Elvira Stanford PA-C [address] [facility] [place] [address] Health Maintenance Due Date Last Done Comments Depression Screening 09/30/2021 09/30/2020 COVID-19 Vaccine ( season) 2024 05/05/2021, 07/28/2020, 07/07/2020 Pap Smear 01/08/2027 01/09/2024, 01/2023, 07/12/2021, Additional history exists Cervical Cancer Screening [...] as of this encounter Visit Diagnoses Diagnosis Angioedema, initial encounter- Primary Recurrent urticaria Other specified urticaria Pruritus Unspecified pruritic disorder documented in this encounter Care Teams Capacitor Pack Press Operator Relationship Specialty Start Date End Date Ana Moreira MD 200 [facility], [place] [id number] PCP - General Internal Medicine 09/30/20 documented as of this encounter"
--- OUTSIDE RECORDS SUMMARY | 2024-08-03 23:47 | External Medical Summary | Summary of Care ---
Author Name Unknown Organization [facility] Address [address] [place] [address] Phone [phone] Care Team Providers Care Shingle Carrier Name Role Phone Ana Moreira MD Primary Care Provider [phone] Reason for Visit * Reason Comments Return Visit Encounter Details Date Type Department Care Team (Late st Contact Info) Description 07/10/2024 1:30 PM EST Office Visit Gynecology/Obstetric s [facility] [place] [address] [facility] [place] [address] [facility]a Starr CRNP [address] [facility] [address] Encounter for supervision of other normal , unspecified trimester* Allergies Active Allergy Reactions Criticality Noted Date [...] Active Additional Information Patient not taking.Reported on 07/10/2024 19 29-1 MG Oral Tablet Chewable Take [...] Active Additional Information Patient not taking.Reported on 07/10/2024 documented as of this encounter (statuses as [...] mRNA, LNP-s, No Pre serve, 2-Dose Series ([employer]) 05/05/2021,07/28/2020,07/07/2020 DTaP Dipth/Tet/Acell Pertussis (Infanrix), Peds 09/08/1998,05/13/1996,1994,10/16,1994 [...] money to get more. Never true 01/09/2024 [place] Depression Scale Answer Date Recorded [place] Depression Scale Total 0 01/09/2024 The thought [...] Sign Reading Time Taken Comments Blood Pressure 120/72 07/10/2024 1:33 PM EST Pulse - - Temperature - - Respiratory Rate - - Oxygen Saturation - - Inhaled Oxygen Concentration - - Weight 84.6 kg (186 lb 9.6 oz) 07/10/2024 1:33 P M EST Height - - Body Mass Index 30.72 04/24/2024 11:10 AM EST documented in this encounter Progress Notes * Toya Starr CRNP - 07/10/2024 1:47 PM EST 36w2d Itching on the tops of her hands, not palms, not feet. Occurred in last as well. Baby is active. Some BH contractions. GBS today. Requesting cervical check. Exhibit Technician Documentation Provider requested brand analyst. Name of brand analyst: HEATHER Marcelino * Pratima Rowe CMA - 07/10/2024 1:33 PM EST 36w2d Increase in cramping. Hands and legs itchy, started last couple days. Happened in last . GBS swab today documented in this encounter Plan of Treatment Upcoming Encounters Date Type Department Care Team (Late st Contact Info) Description 07/18/2024 1:30 PM EST Office Visit Gynecology/Obstetrics [facility] [address] [place] [address] Richelle Malone CRNP [address] [place] [address] 07/25/2024 1:30 PM EST Office Visit Gynecology/Obstetrics [facility] [address] [place] [address] Toya Starr CRNP [address] [place] [address] 08/01/2024 1:30 PM EST Office Visit [facility] [address] [place] [address] Richelle Malone CRNP [address] [place] [address] 09/08/2024 1:00 PM EDT Office Visit Allergy/Immunology [facility] Ale[facility]andro [place] [address] [place] [address] Elvira Stanford PA-C 200 [facility] [place] [address] Pending Results Name Type Priority Associated Diagnoses Date /Time GROUP B STREP CULTURE/PCR Lab Routine Encounter for supervision of other normal , unspecified trimester 07/10/2024 2:00 PM EST Scheduled Orders Name Type Priority Associated Diagnoses Orde r Schedule GROUP B STREP CULTURE/PCR Lab Routine Encounter for supervision of other normal , unspecified trimester Expected: 07/10/2024, Expires: 07/10/2025 Health Maintenance Due Date Last Done Comments Depression Screening 09/30/2021 09/30/2020 COVID-19 Vaccine ( season) 2024 05/05/2021, 07/28/2020, 07/07/2020 Pap Smear 01/08/2027 01/09/2024, 06/0 01/2023, 07/12/2021, Additional history exists Cervical Cancer Screening 01/08/2029 HPV/Co-Test 01/08/2029 01/09/2024, 11/23/2022 DTap/Tdap Vaccines (10 - Td or Tdap) 05/20/2034 05/20/2024, 07/21/2022, 12/12/2017, Additional history exists Hepatitis B Vaccine Completed 07/23/1995, 1994, 1994 HPV (Gardasil) Vaccine Completed 1, 10/13/2010, 07/29/2010 MENINGOCOCCAL (MENACTRA/MENVEO) Completed 09/02/2012 Influenza [...] of other normal , unspecified trimester- Primary documented in this encounter Care Teams Shingle Carrier Relationship Specialty Start Date End Date Ana Moreira MD [address] [facility] [place] [address] PCP - General Internal Medicine 09/30/20 documented as of this encounter
--- OUTSIDE RECORDS SUMMARY | 2024-08-03 23:47 | External Medical Summary | Summary of Care ---
Author Name Unknown Organization [facility] Address [address] [place] [address] Phone [phone] Care Team Providers Care Hydroelectric Machinery Mechanic Name Role Phone Ana Moreira MD Primary Care Provider [phone] Reason for Visit * Reason Comments Return Visit Encounter Details Date Type Department Care Team (Late st Contact Info) Description 07/10/2024 1:30 PM EST Office Visit Gynecology/Obstetric s [facility] [place] [address] [facility] [place] [address] Toya Starr CRNP [address] [facility] [place] [address] Encounter for supervision of other normal , [...] mRNA, LNP-s, No Pre serve, 2-Dose Series ([employer]) 05/05/2021,07/28/2020,07/07/2020 DTaP Dipth/Tet/Acell Pertussis (Infanrix), Peds 09/08/1998,05/13/1996,1994,10/16,1994 [...] money to get more. Never true 01/09/2024 [place] Depression Scale Answer Date Recorded [place] Depression Scale Total 0 01/09/2024 The thought [...] BH contractions. GBS today. Requesting cervical check. Complaint Evaluation Officer Documentation Provider requested supervising bailiff. Name of supervising bailiff: HEATHER Marcelino * Pratima Rowe CMA - 07/10/2024 1:33 PM EST 36w2d Increase in cramping. Hands and legs itchy, started last couple days. Happened in last . GBS swab today documented in this encounter Plan of Treatment Upcoming Encounters Date Type Department Care Team (Late st Contact Info) Description 07/18/2024 1:30 PM EST Office Visit Gynecology/Obstetrics [facility] [address] [place] [address] Richelle Malone CRNP [address] [place] [address] 07/25/2024 1:30 PM EST Office Visit Gynecology/Obstetrics [facility] [place] [address] [place] [address] Toya Starr CRNP [address] [place] [address] 08/01/2024 1:30 PM EST Office Visit [facility]cology[facility]st[facility]s [facility] [address] [place] [address] Richelle Malone CRNP [address] [place] [address] 09/08/2024 1:00 PM EDT Office Visit Allergy/Immunology [facility] Ale[facility] [place] [address] [place] [address] Elvira Stanford PA-C 200 [facility] [place] [address] Pending Results Name Type Priority Associated Diagnoses [...] Primary documented in this encounter Care Teams Hydroelectric Machinery Mechanic Relationship Specialty Start Date End Date Ana Moreira MD 200 [place] [address] PCP - General Internal Medicine 09/30/20 documented as of this encounter
--- OUTSIDE RECORDS SUMMARY | 2024-08-03 23:47 | External Medical Summary | Summary of Care ---
Author Name Unknown Organization [facility] Address [address] [place] [address] Phone [phone] Care Team Providers Care Meat Carrier Name Role Phone Ana Moreira MD Primary Care Provider [phone] Reason for Visit * Reason Comments Return Visit Encounter Details Date Type Department Care Team (Late st Contact Info) Description 07/18/2024 1:30 PM EST Office Visit Gynecology/Obstetric s Rafa Charles [address] [facility] [place] [address] BackRichelle millan CRNP [facility] [address] Encounter for supervision of other normal , unspecified trimester* Allergies Active Allergy Reactions Criticality Noted Date Comments Oxycodone 04/27/2020 Other reaction(s): fainting, sweating, dizziness. Also occurred with Percocet documented as of this encounter (statuses as of 07/18/2024) Medications SUMAtriptan Succinate 25 MG Oral Tablet [...] as of this encounter (statuses as of 07/18/2024) Active Problems Problem Noted Date Diagnosed Date [...] as of this encounter (statuses as of 07/18/2024) Resolved Problems Problem Noted Date Diagnosed Date [...] as of this encounter (statuses as of 07/18/2024) Immunizations Name Administration Dates Next Due COVID-19 mRNA, LNP-s, No Pre serve, 2-Dose Series ([employer]) 05/05/2021,07/28/2020,07/07/2020 DTaP Dipth/Tet/Acell Pertussis (Infanrix), Peds 09/08/1998,05/13/1996,1994,10/16,1994 [...] money to get more. Never true 01/09/2024 [place] Depression Scale Answer Date Recorded [place] Depression Scale Total 3 07/18/2024 The thought [...] Sign Reading Time Taken Comments Blood Pressure 118/70 07/18/2024 1:39 PM EST Pulse - - Temperature - - Respiratory Rate - - Oxygen Saturation - - Inhaled Oxygen Concentration - - Weight 84.8 kg (187 lb) 07/18/2024 1:39 PM EST Height - - Body Mass Index 30.78 04/24/2024 11:10 AM EST documented in this encounter Progress Notes * Richelle Malone CRNP - 07/18/2024 1:55 PM EST 37w3d No ctx, leaking, bleeding. Went to L&D last weekend with decreased FM - baby is now moving normally. Given labor instructions. Requests IOL, scheduled for 40+ weeks. FH 35 cm, last week 36 cm. Normal growth scan 2 weeks ago. Will continue to monitor, repeat u/s if persists. Unsure of contraceptive plans, used Nuva Ring before. Recommend progesterone only in first 6 mos ofbreastfeeding. Call with any labor signs or decreased FM. Return in 1 week. HEATHER Pittman documented in this encounter Plan of Treatment Upcoming Encounters Date Type Department Care Team (Late st Contact Info) Description 07/25/2024 1:30 PM EST [facility] [address] [place] [address] Toya Starr CRNP [address] [place] [address] 08/01/2024 1:30 PM EST [facility] [address] [place] [address] Richelle Malone CRNP [address] [place] [address] 09/08/2024 1:00 PM EDT Office Visit Allergy/Immunology State Jim Dickerson [address] [facility] [place] [address] Elvira Stanford PA-C [address] [facility] [place] [address] Health Maintenance Due Date Last Done Comments [...] Primary documented in this encounter Care Teams Meat Carrier Relationship Specialty Start Date End Date Ana Moreira MD [address] [facility] [place] [address] PCP - General Internal Medicine 09/30/20 documented as of this encounter
--- OUTSIDE RECORDS SUMMARY | 2024-08-03 23:47 | External Medical Summary | Summary of Care ---
Author Name Unknown Organization [facility] Address [address] [place] [address] Phone [phone] Care Team Providers Care Inside Account Representative Name Role Phone Ana Moreira MD Primary Care Provider [phone] Reason for Visit * Reason Comments Return Visit Encounter Details Date Type Department Care Team (Late st Contact Info) Description 08/01/2024 1:30 PM EST Office Visit Gynecology/Obstetric s Rafa Charles [address] [facility] [place] [address] BackRichelle millan CRNP [address] [facility] [address] Encounter for supervision of other normal , unspecified trimester* Allergies Active Allergy Reactions Criticality Noted Date Comments Oxycodone 04/27/2020 Other reaction(s): fainting, sweating, dizziness. Also occurred with Percocet documented as of this encounter (statuses as of 08/01/2024) Medications SUMAtriptan Succinate 25 MG Oral Tablet [...] as of this encounter (statuses as of 08/01/2024) Active Problems Problem Noted Date Diagnosed Date [...] as of this encounter (statuses as of 08/01/2024) Resolved Problems Problem Noted Date Diagnosed Date [...] as of this encounter (statuses as of 08/01/2024) Immunizations Name Administration Dates Next Due COVID-19 mRNA, LNP-s, No Pre serve, 2-Dose Series ([employer]) 05/05/2021,07/28/2020,07/07/2020 DTaP Dipth/Tet/Acell Pertussis (Infanrix), Peds 09/08/1998,05/13/1996,1994,10/16,1994 [...] money to get more. Never true 01/09/2024 [place] Depression Scale Answer Date Recorded [place] Depression Scale Total 3 07/18/2024 The thought [...] Sign Reading Time Taken Comments Blood Pressure 118/80 08/01/2024 1:31 PM EST Pulse - - Temperature - - Respiratory Rate - - Oxygen Saturation - - Inhaled Oxygen Concentration - - Weight 85.3 kg (188 lb) 08/01/2024 1:31 PM EST Height - - Body Mass Index 30.95 04/24/2024 11:10 AM EST documented in this encounter Progress Notes * Richelle Malone CRNP - 08/01/2024 1:42 PM EST 39w3d Doing well, baby is active. Some BH ctx, nothing regular. No leaking/bleeding. Reviewed growth scan results. Requests cervical exam, 2-3 cm. Membranes stripped with pt's consent. Aware she may have cramping, spotting. Call with active bleeding, regular painful ctx, LOF, or decreased FM. Induction is scheduled for next . Marketing Forecaster Documentation Provider requested cigarette stamper. Name of cigarette stamper: HEATHER Romero * Leah Fierro LPN - 08/01/2024 1:29 PM EST 39w3d Denies vaginal bleeding/rom + movement No new concerns documented in this encounter Plan of Treatment Upcoming Encounters Date Type Department Care Team (Late st Contact Info) Description 09/08/2024 1:00 PM EDT Office Visit Allergy[facility]Immunology [facility] [place] [address] [facility] [place] [address] Elvira Stanford PA-C [address] [facility] [place] [address] Health Maintenance Due Date Last Done Comments [...] Completed , 04/24/2023, 03/29/2022, Additional history exists Meningitis B Vaccine (Bexsero/Trumemba) Aged Out No longer eligible based on patient's age to complete this topic Pneumococcal Vaccine: Pediatrics (0 to 5 Years) [...] Primary documented in this encounter Care Teams Inside Account Representative Relationship Specialty Start Date End Date Ana Moreira MD [address] [place] [address] PCP - General Internal Medicine 09/30/20 documented as of this encounter
[2024-08-03] MEDS: LACTATED RINGER'S 1,000 ML IV PRN (23:57)
[2024-08-04 00:12] LABS: Hematocrit (blood only) 41.1 % (37.0-47.0); Hemoglobin 14.2 g/dl (12.0-16.0); Mean Corpuscular Hemoglobin 32.8 pg (25.0-34.0); Mean Corpuscular Hgb Conc 34.5 g/dL (32.0-36.0); Mean Corpuscular Volume 94.9 fL (80.0-100.0); Platelet Count 284 K/uL (130-400); RDW Coefficient of Variation 12.1 % (11.5-14.5); RDW Standard Deviation 42.6 fL (36.4-46.3); Red Blood Count 4.33 M/uL (4.20-5.40)
[2024-08-04] MEDS: OXYTOCIN 30 UNITS/NSS 30 UNITS/500 ML BAG IV PRN (00:25)
[2024-08-04] MEDS ORDERED: bisacodyL 10 MG SUPP PR PRN (00:27)
[2024-08-04] MEDS ORDERED: HYDROCORTISONE ACETATE 25 MG SUPP PR PRN (00:27)
[2024-08-04] MEDS ORDERED: OXYTOCIN 30 UNITS/NSS 30 UNITS/500 ML BAG IV PRN (00:27)
[2024-08-04] MEDS: LIDOCAINE 1% LOCAL 20 ML VIAL INFIL PRN (00:33)
--- NOTE | 2024-08-04 00:42 | Delivery Summary ---
Vaginal Delivery Summary Date of Service August 04, 2024 Vaginal Delivery Summary and 2nd Degree LAC Pre-operative Diagnosis: at term active labor and srom Post-operative Diagnosis: same Procedure: second degree laceration and repair QBL: 200cc Anesthesia: local infiltration of lidocaine to the perineum Procedure: The patient presented to labor and delivery with labor and srom in the car. Was initially 7cm but quickly felt the urge to push. Patient seen by the [facility] group but the doctor was not in house and the patient was unable to not push. I was called to the delivery. I was able to reduce the anterior lip and she was able to push. The patient pushed for two contractions to deliver a viable female infant in fanny position. The rest of the infant was then delivered without difficulty. The baby was vigorous. The nose and mouth were bulb suctioned and the was placed in the maternal abdomen for drying and attention. Cord was clamped and cut at one minute of life. Cord blood obtained. Placenta delivered spontaneous, intact with a three vessel cord. Cervix/sulci/rectum were intact. A second degree perineal laceration was repaired in the normal standard fashion after infiltrating the area with lidocaine. Hemostasis obtained with dilute pitocin and fundal massage. Apgars were pending. Mother and baby doing well at the end of the delivery. MNP Vaginal Delivery Charge Delivery Type Details: and 2nd Degree LAC
[2024-08-04] MEDS: BUPIVACAINE 0.25% PF 30 ML VIAL ONE (01:17)
[2024-08-04] MEDS: fentaNYL citrate PF 100 MCG/2 ML VIAL ONE (01:17)
[2024-08-04] MEDS: SODIUM CHLORIDE 0.9% PF INJ 10 ML VIAL ONE (01:17)
[2024-08-04] MEDS: LIDOCAINE 2%/EPINEPHRINE 1:200,000 20 ML PF ONE (01:17)
[2024-08-04] MEDS: fentANYL 2 MCG/ML BUPIVacaine 0.125%-NSS 100ML BAG ONE (01:17)
[2024-08-04] MEDS: ePHEDrine sulfate 50 MG/ML AMP ONE (01:17)
[2024-08-04] MEDS: OXYTOCIN 30 UNITS/500ML NSS IV ONE (01:18)
[2024-08-04] MEDS: DIPHTHER/TETAN/PERTUS Vaccine (Tdap, Adol/Adult) 0.5mL IM ONE (01:18)
[2024-08-04] MEDS: ACETAMINOPHEN 325 MG TAB PO PRN (02:10)
[2024-08-04] MEDS: BENZOCAINE 20% SPRY 85 APPLN/85 GM CAN EXT PRN (02:10)
[2024-08-04] MEDS: IBUPROFEN 600 MG TAB PO PRN (08:45)
[2024-08-04] MEDS: PRENATAL VITAMIN 1 TAB PO SCH (08:45)
[2024-08-04] MEDS: DOCUSATE SODIUM 100 MG CAP PO SCH (08:46)
[2024-08-04 17:07] VITALS: O2SAT 98
[2024-08-05 01:30] VITALS: TEMP 97.9
[2024-08-05 06:29] LABS: Hematocrit (blood only) 39.7 % (37.0-47.0); Hemoglobin 13.5 g/dl (12.0-16.0); Mean Corpuscular Hemoglobin 32.6 pg (25.0-34.0); Mean Corpuscular Volume 95.9 fL (80.0-100.0); Mean Platelet Volume 9.8 fL (9.4-12.4); Platelet Count 249 K/uL (130-400); RDW Coefficient of Variation 12.5 % (11.5-14.5); RDW Standard Deviation 44.1 fL (36.4-46.3); Red Blood Count 4.14 M/uL (4.20-5.40); White Blood Count 9.61 K/ul (4.8-10.8)
[2024-08-05 08:35] VITALS: BP 138/89; PULSE 67; RESP 16
--- NOTE | 2024-08-05 09:47 | Obstetrical Progress Note ---
Date of Service August 05, 2024 Assessment & Plan Admission and Anticipated Discharge Date Admission Date: August 03, 2024 Subjective abdomen soft and non tender no calf tenderness ambulating well vaginal bleeding scant hgb 13.5 Results & Data Vital Signs (Past 12 Hours) Vital Signs Temp Pulse Resp BP Pulse Ox O2 Del Method 08/05/24 07:25 36.6 C 67 16 138/89 Room Air 08/05/24 00:00 36.6 C 64 20 114/70 98 Room Air
[2024-08-05] MEDS ORDERED: bisacodyL 5 MG TABEC PO SCH (20:00)
--- NOTE | 2024-08-06 07:56 | Coding Query ---
CODING QUERY To promote full compliance with coding requirements relating to patient care, provider participation is requested in all cases of coning machine operator uncertainty. Please assist us with the question(s) below: Coding Question(s): Please specify below, the weeks of gestation of upon admission: (x ) Weeks of gestation of was known. Please specify term, >37 weeks ( ) Unknown weeks of gestation of Patient was a patient of the [facility] and I came in at the last minute as she was delivering. This question would be better answered by Dr. Brewster her primary provider. Physician's Response(s): Thank you Kenzie Herring Principal Diagnosis: "that condition established after study, to be chiefly responsible for occasioning the admission of the patient to the hospital for care." Co-Existing Principal Diagnosis: "when two or more diagnoses equally meet the criteria for principal diagnosis as determined by the circumstances of admission, diagnostic work up, and/or therapy provided, and the Alphabetic Index, Tabular List, or another coding guideline does not provide sequencing direction, any one of the diagnoses may be sequenced first." "When the physician has documented what appears to be a current diagnosis in the body of the record, but has not included the diagnosis in the final diagnostic statement, the physician should be asked whether the diagnosis should be added." (Source [facility]oding [facility] 2 QTR90. p3-4) TREVOR
--- NOTE | 2024-08-06 08:58 | Coding Query ---
CQ CODING QUERY To promote full compliance with coding requirements relating to patient care, provider participation is requested in all cases of hcc coders uncertainty. Please assist us with the question(s) below: Coding Question(s): Please specify below, the weeks of gestation of upon admission: ( ) Weeks of gestation of was known. Please specify___39 weeks 6 days ( ) Unknown weeks of gestation of Physician's Response(s): Thank you Kenzie Herring Principal Diagnosis: "that condition established after study, to be chiefly responsible for occasioning the admission of the patient to the hospital for care." Co-Existing Principal Diagnosis: "when two or more diagnoses equally meet the criteria for principal diagnosis as determined by the circumstances of admission, diagnostic work up, and/or therapy provided, and the Alphabetic Index, Tabular List, or another coding guideline does not provide sequencing direction, any one of the diagnoses may be sequenced first." "When the physician has documented what appears to be a current diagnosis in the body of the record, but has not included the diagnosis in the final diagnostic statement, the physician should be asked whether the diagnosis should be added." (Source Coding Clinic 2 QTR90. p3-4) TREVOR
== END 2024-08-05 11:21 | disposition home or self-care (01) | DRG 807 ==
LOC: OPB 23:40 → 4S1 23:41 → 4E2 08-04 02:40